=== PATIENT | male | born 2005 | race Caucasian/White ===

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

== ENCOUNTER 2024-05-14 21:00 | Emergency (ER) | payer OTHER ==
[~2024-05-14] VITALS: Ht 185.4 cm; Wt 83.9 kg
[~2024-05-14 21:00] MED LIST changes: +TRAZ50 PO
[2024-05-14] MEDS ORDERED: Lactated Ringer's 1,000 ML IV ONE (21:10)
[2024-05-14 21:28] VITALS: BP 136/84
[2024-05-14] MEDS ORDERED: Tetanus,Diphtheria Toxd Ped/Pf 0.5 ML VIAL IM ONE (21:35)
[2024-05-14 21:39] LABS: BASOPHILS ABSOLUTE AUTO 0.12 K/mm3 (0.00-0.23); BASOPHILS PERCENT AUTO 1 % (0-2); EOSINOPHILS PERCENT AUTO 2 % (0-6); Hematocrit 40.3 % (37.0-53.0); Hemoglobin 14.1 g/dL (13.5-17.5); IMMATURE GRAN ABSOLUTE AUTO 0.12 K/mm3 (0.00-0.10); IMMATURE GRAN PERCENT AUTO 1 % (0-1); LYMPHOCYTES ABSOLUTE AUTO 5.14 K/mm3 (0.84-5.20); LYMPHOCYTES PERCENT AUTO 42 % (21-46); MONOCYTES ABSOLUTE AUTO 1.11 K/mm3 (0.16-1.47); MONOCYTES PERCENT AUTO 9 % (4-13); Mean Corpuscular HGB 30.5 pg (26.0-34.0); Mean Corpuscular Volume 87 fL (80-100); Mean Platelet Volume 8.7 fL (9.1-12.4); NEUTROPHILS ABSOLUTE AUTO 5.53 K/mm3 (1.96-9.15); NEUTROPHILS PERCENT AUTO 45 % (41-73); Platelet Count 339 K/mm3 (150-400); RDW Coefficient Variation 11.9 % (11.7-14.2); RDW Standard Deviation 38.2 fL (35.1-46.3); Red Blood Cell Count 4.62 M/mm3 (4.30-5.90); White Blood Cell Count 12.32 K/mm3 (4.00-11.30)
[2024-05-14] MEDS ORDERED: Diphth,Pertuss(Acell),Tet Vac 0.5 ML VIAL IM ONE (21:40)
[2024-05-14 22:03] LABS: Albumin, Blood 4.3 g/dL (3.4-5.0); Albumin/Globulin Ratio 1.3 (0.8-1.8); Bilirubin, Total 0.4 mg/dL (0.1-1.0); Bun/Creatinine Ratio 10.5 (12.0-20.0); Calcium, Blood 8.3 mg/dL (8.5-10.1); Creatinine, Blood 0.86 mg/dL (0.60-1.20); Globulin, Blood 3.4 g/dL (2.2-4.0); Potassium, Blood 3.2 mmol/L (3.5-5.5); Total Protein, Blood 7.7 g/dL (6.4-8.2)
[2024-05-14] MEDS ORDERED: CEPH500 PO (22:49)
== END 2024-05-14 23:23 | disposition home or self-care (01) ==
LOC: ER 21:00
PROVIDERS: Physician Assistant
DX: S51.811A Laceration without foreign body of right forearm, initial encounter (principal); F10.129 Alcohol abuse with intoxication, unspecified; W26.9XXA Contact with unspecified sharp object(s), initial encounter
CPT/HCPCS: 73090; 80053; 83690; 85025; 90702; 90715; J7120

== ENCOUNTER → 2024-10-22 | Outpatient (CLI) | payer OTHER ==
[~2024-10-22] MED LIST changes: +CEPH500 PO
[2024-10-23 12:21] LABS: Adenovirus F 40/41 Not Detected (NOT DETECT); Astrovirus Not Detected (NOT DETECT); Campylobacter Sp Not Detected (NOT DETECT); Cryptosporidium Not Detected (NOT DETECT); Cyclospora Cayetanensis Not Detected (NOT DETECT); E. Coli O157 Not Detected (NOT DETECT); Entamoeba Histolytica Not Detected (NOT DETECT); Enteroaggregative E. coli-EAEC Not Detected (NOT DETECT); Enteropathogenic E. coli-EPEC Not Detected (NOT DETECT); Enterotoxigenic E. coli-ETEC Not Detected (NOT DETECT); Giardia Lamblia Not Detected (NOT DETECT); Norovirus GI/GII Not Detected (NOT DETECT); Plesiomonas Shigelloides Not Detected (NOT DETECT); Rotavirus A Not Detected (NOT DETECT); Salmonella Sp Not Detected (NOT DETECT); Sapovirus Not Detected (NOT DETECT); Shiga Toxin-prod E. coli-STEC Not Detected (NOT DETECT); Shigella/Enteroin E. coli-EIEC Not Detected (NOT DETECT); Vibrio Cholerae Not Detected (NOT DETECT); Vibrio Sp Not Detected (NOT DETECT); Yersinia Enterocolitica Not Detected (NOT DETECT)
== END ==
LOC: LAB SHORT 23:10 → LAB 23:10
PROVIDERS: Family Medicine
DX: R19.7 Diarrhea, unspecified (principal)
CPT/HCPCS: 87507

== ENCOUNTER 2025-02-06 12:42 | Observation (INO) | payer OTHER ==
[~2025-02-06] VITALS: Ht 182.9 cm; Wt 77.1 kg
[2025-02-06] MEDS ORDERED: NS 1,000 ML IV SCH ×2 (13:00→17:15)
[2025-02-06 13:20] LABS: BASOPHILS ABSOLUTE AUTO 0.07 K/mm3 (0.00-0.23); BASOPHILS PERCENT AUTO 1 % (0-2); EOSINOPHILS ABSOLUTE AUTO 0.18 K/mm3 (0.00-0.68); EOSINOPHILS PERCENT AUTO 2 % (0-6); Hematocrit 35.9 % (37.0-53.0); Hemoglobin 12.4 g/dL (13.5-17.5); IMMATURE GRAN ABSOLUTE AUTO 0.02 K/mm3 (0.00-0.10); IMMATURE GRAN PERCENT AUTO 0 % (0-1); LYMPHOCYTES ABSOLUTE AUTO 2.39 K/mm3 (0.84-5.20); LYMPHOCYTES PERCENT AUTO 28 % (21-46); MONOCYTES ABSOLUTE AUTO 0.74 K/mm3 (0.16-1.47); MONOCYTES PERCENT AUTO 9 % (4-13); Mean Corpuscular HGB Conc 34.5 g/dL (31.5-36.5); Mean Corpuscular Volume 87 fL (80-100); Mean Platelet Volume 8.7 fL (9.1-12.4); NEUTROPHILS ABSOLUTE AUTO 5.29 K/mm3 (1.96-9.15); NEUTROPHILS PERCENT AUTO 61 % (41-73); Platelet Count 312 K/mm3 (150-400); RDW Coefficient Variation 11.9 % (11.7-14.2); RDW Standard Deviation 38.3 fL (35.1-46.3); Red Blood Cell Count 4.14 M/mm3 (4.30-5.90); White Blood Cell Count 8.69 K/mm3 (4.00-11.30)
[2025-02-06 13:41] LABS: Albumin, Blood 4.3 g/dL (3.4-5.0); Albumin/Globulin Ratio 1.5 (0.8-1.8); Bilirubin, Total 0.7 mg/dL (0.1-1.0); Bun/Creatinine Ratio 11.7 (12.0-20.0); Creatinine, Blood 0.77 mg/dL (0.60-1.20); Globulin, Blood 2.8 g/dL (2.2-4.0); Potassium, Blood 3.5 mmol/L (3.5-5.5); Total Protein, Blood 7.1 g/dL (6.4-8.2)
[2025-02-06] MEDS ORDERED: Ondansetron HCl 2 MG / ML 2ML Vial IV ONE (14:45)
[2025-02-06] MEDS ORDERED: Morphine Sulfate 4 MG/1 ML Injection IV ONE (14:45)
[2025-02-06] MEDS ORDERED: Ondansetron HCl 2 MG / ML 2ML Vial IV PRN (14:50)
[2025-02-06] MEDS ORDERED: HYDROcodone 5-APAP 325 TAB PO PRN (15:20)
[2025-02-06 16:08] VITALS: BP 123/72
--- NOTE | 2025-02-06 16:14 | NUR ---
PT ARRIVED TO 227 FROM ED. PT RESTING ON L SIDE, TRANSFERRED PT FROM [facility] TO BED W/SLIDER SHEET. S.O. BEDSIDE. PT REFUSING TO OPEN EYES OR ANSWER QUESTIONS, MOVES WHEN TOUCHED, ADJUSTED ARM SO COULD GAIN ACCESS TO BP CUFF. BREATHING E/U ON RA. LCA. HRR. VSS. NO BRUISING/EDEMA NOTED TO BACK AT THIS TIME. CALL LIGHT IN REACH. BED ALARM ON FOR SAFETY.
--- NOTE | 2025-02-06 16:37 | NUR ---
SPOKE TO DR LANG REGARDING PT. REPORTED TO DR LANG PT NOT OPENING EYES, ANSWERING QUESTIONS. NO NEW ORDERS REGARDING MENTATION. CLARIFIED NO NEED FOR OXIMETRY OR TELE AT THIS TIME. PT MAY HAVE REGULAR DIET WHEN AWAKE. PT BRIEFLY TURNED ON BACK AND TOLD S.O. TO CLOSE CURTAINES DUE TO FEELING HOT BUT DECLINED TO ANSWER THIS RN'S QUESTIONS. NO BACK TO RESTING ON L SIDE. BED ALARM ON FOR SAFETY.
[2025-02-06] MEDS ORDERED: FentaNYL Citrate 50 MCG/ML 2 ML Injection IV PRN (16:40)
--- NOTE | 2025-02-06 17:21 | NUR ---
PT WOKE TO VOID AND THEN HAD EPISODE OF EMESIS/DRY HEAVES/NAUSEA. MEDICATED PER ORDERS W/ZOFRAN. STILL NOT ANSWERING QUESTIONS BUT LIFTED ARM OUT OF BLANKETS TO ALLOW ACCESS TO IV WHEN ASKED. RESTING ON R SIDE W/EYES CLOSED. S.O. AT BEDSIDE. BED ALARM ON FOR SAFETY. CALL LIGHT IN REACH.
[2025-02-06 17:27] LABS: Source, Urine Clean Catch
[2025-02-06 17:56] LABS: Appearance, Urine Hazy (Clear); Bilirubin, Urine Neg (Neg); Blood, Urine 5+ (Neg); Glucose Qualitative, Urine Neg (Neg); Ketones, Urine Neg (Neg); Leukocyte Esterase, Urine Neg (Neg); Nitrite, Urine Neg (Neg); Protein, Urine 1+ (Neg); Urobilinogen, Urine NORM (Normal)
[2025-02-06 18:12] LABS: Color, Urine Pale Yellow (P-Yellow)
[2025-02-06 18:13] LABS: Bacteria Not Seen /hpf; Red Blood Cells, Urine 50-100 /hpf (0-2); Squamous Epithelial Cells Rare /hpf (Few); White Blood Cells, Urine 0-2 /hpf (0-5)
[2025-02-06 19:23] VITALS: BP 125/83
--- NOTE | 2025-02-06 19:48 | NUR ---
ASSSESSMENT PATIENT IS AWAKE AND ALERT, ANSWERS ALL QUESTIONS. ABLE TO RECALL ACCIDENT AND DETAILS. HR IS SLIGHTLY LOW IN THE LOW 50S. SBP IS 120S. LUNG SOUNDS WNL. DENIES CHEST PAIN, SOB. ORIENTED TO CALL LIGHT AND SIGNIFICANT OTHER IN ROOM.
--- NOTE | 2025-02-07 05:06 | NUR ---
SHIFT SUMMARY PATIENT IS ALERT AND ORIENTED. DROWSY AT START OF SHIFT, ABLE TO ANSWER ALL QUESTIONS. PATIENT VOIDING, WALKING IN CHANG. TOLERATING PO INTAKE. MEDICATED FOR PAIN PER EMAR. RESTING AT THIS TIME. VSS. CALL LIGHT IN REACH .
[2025-02-07 05:28] VITALS: BP 121/57
[2025-02-07 06:35] LABS: BASOPHILS ABSOLUTE AUTO 0.07 K/mm3 (0.00-0.23); BASOPHILS PERCENT AUTO 1 % (0-2); EOSINOPHILS ABSOLUTE AUTO 0.15 K/mm3 (0.00-0.68); EOSINOPHILS PERCENT AUTO 1 % (0-6); Hematocrit 37.5 % (37.0-53.0); Hemoglobin 12.9 g/dL (13.5-17.5); IMMATURE GRAN ABSOLUTE AUTO 0.05 K/mm3 (0.00-0.10); IMMATURE GRAN PERCENT AUTO 0 % (0-1); LYMPHOCYTES PERCENT AUTO 22 % (21-46); MONOCYTES ABSOLUTE AUTO 1.23 K/mm3 (0.16-1.47); MONOCYTES PERCENT AUTO 10 % (4-13); Mean Corpuscular HGB 30.2 pg (26.0-34.0); Mean Corpuscular HGB Conc 34.4 g/dL (31.5-36.5); Mean Corpuscular Volume 88 fL (80-100); Mean Platelet Volume 9.5 fL (9.1-12.4); NEUTROPHILS ABSOLUTE AUTO 8.05 K/mm3 (1.96-9.15); NEUTROPHILS PERCENT AUTO 66 % (41-73); Platelet Count 322 K/mm3 (150-400); RDW Coefficient Variation 12.2 % (11.7-14.2); RDW Standard Deviation 39.2 fL (35.1-46.3); Red Blood Cell Count 4.27 M/mm3 (4.30-5.90); White Blood Cell Count 12.25 K/mm3 (4.00-11.30)
[2025-02-07 07:01] LABS: Bun/Creatinine Ratio 11.7 (12.0-20.0); Calcium, Blood 8.5 mg/dL (8.5-10.1); Creatinine, Blood 0.77 mg/dL (0.60-1.20); Potassium, Blood 3.5 mmol/L (3.5-5.5)
[2025-02-07 07:59] VITALS: BP 127/104
[2025-02-07 08:00] VITALS: BP 132/72
[2025-02-07 11:03] VITALS: BP 141/68
--- NOTE | 2025-02-07 14:41 | NUR ---
1050: RN TO ROOM TO ESCORT PATIENT FOR DISCHARGE. PATIENT WAS IN RESTROOM AND REPORTED PAIN IN ABDOMEN WITH INHALE; PATIENT REPORTED NO SHORTNESS OF BREATH. PATIENT VOIDED AND THEN BECAME DIAPHORETIC AND STATED HE FELT LIKE HE WAS GOING TO PASS OUT. VITAL SIGNS OBTAINED; ARCELIA MCCRACKEN WITH MESSAGE TO PROVIDER. NO NEW ORDERS OBTAINED. PATIENT RESTING IN BED WITH CALL LIGHT WITHIN REACH.
[2025-02-07 15:10] VITALS: BP 124/62
[2025-02-07 15:30] VITALS: BP 120/75
--- NOTE | 2025-02-07 15:59 | NUR ---
1555: PT WHEELED TO CAR WITH CAREGIVER. PT VERBALIZED UNDERSTANDING OF DC INSTRUCTIONS.
== END 2025-02-07 15:49 | disposition home or self-care (01) ==
LOC: ER 12:42 → SURS 12:43
PROVIDERS: Emergency Medicine; ADMIT Surgery
DX: S37.012A Minor contusion of left kidney, initial encounter (principal); V29.99XA Rider (driver) (passenger) of other motorcycle injured in unspecified traffic accident, initial encounter; Z79.899 Other long term (current) drug therapy
CPT/HCPCS: 36415; 70450; 71260; 72125; 74177; 80048; 80053; 80320; 81001; 85025; 96374-59; 96375; 96376; 99285-25; A9270; G0378; J2270; J2405; J7030; Q9967

== ENCOUNTER 2025-02-08 21:25 | Emergency (ER) | payer OTHER ==
[~2025-02-08] VITALS: Ht 180.3 cm; Wt 81.7 kg
[2025-02-08 21:41] VITALS: BP 136/84
== END 2025-02-08 23:29 | disposition home or self-care (01) ==
LOC: ER 21:25
DX: S37.032D Laceration of left kidney, unspecified degree, subsequent encounter (principal); S36.899D Unspecified injury of other intra-abdominal organs, subsequent encounter; Z02.79 Encounter for issue of other medical certificate; Z59.89 Other problems related to housing and economic circumstances; V29.99XD Rider (driver) (passenger) of other motorcycle injured in unspecified traffic accident, subsequent encounter
CPT/HCPCS: 99281

== ENCOUNTER 2025-06-07 23:27 | Emergency (ER) | payer OTHER ==
[~2025-06-07] VITALS: Ht 182.9 cm; Wt 75.3 kg
[2025-06-08 01:37] LABS: BASOPHILS ABSOLUTE AUTO 0.08 K/mm3 (0.00-0.23); BASOPHILS PERCENT AUTO 1 % (0-2); EOSINOPHILS ABSOLUTE AUTO 0.16 K/mm3 (0.00-0.68); EOSINOPHILS PERCENT AUTO 2 % (0-6); Hematocrit 38.1 % (37.0-53.0); Hemoglobin 13.2 g/dL (13.5-17.5); IMMATURE GRAN ABSOLUTE AUTO 0.03 K/mm3 (0.00-0.10); IMMATURE GRAN PERCENT AUTO 0 % (0-1); LYMPHOCYTES ABSOLUTE AUTO 2.64 K/mm3 (0.84-5.20); LYMPHOCYTES PERCENT AUTO 30 % (21-46); MONOCYTES ABSOLUTE AUTO 0.77 K/mm3 (0.16-1.47); MONOCYTES PERCENT AUTO 9 % (4-13); Mean Corpuscular HGB Conc 34.6 g/dL (31.5-36.5); Mean Corpuscular Volume 88 fL (80-100); NEUTROPHILS ABSOLUTE AUTO 5.08 K/mm3 (1.96-9.15); NEUTROPHILS PERCENT AUTO 58 % (41-73); NRBC ABSOLUTE 0.00 K/mm3 (0.00-0.02); NRBC Auto 0.0 /100 WBC (0.0-0.2); Platelet Count 299 K/mm3 (150-400); RDW Coefficient Variation 11.9 % (11.7-14.2); RDW Standard Deviation 38.4 fL (35.1-46.3)
[2025-06-08 01:51] LABS: Source, Urine Clean Catch
[2025-06-08 01:58] LABS: Bilirubin, Urine Neg (Neg); Glucose Qualitative, Urine Neg (Neg); Ketones, Urine Neg (Neg); Leukocyte Esterase, Urine Neg (Neg); Protein, Urine Neg (Neg); Specific Gravity, Urine 1.015 (1.003-1.022); Urobilinogen, Urine NORM (Normal)
[2025-06-08 02:00] LABS: Alanine Aminotransfer (ALT/SGP 21.0 U/L (12-78); Albumin, Blood 4.1 g/dL (3.4-5.0); Albumin/Globulin Ratio 1.5 (0.8-1.8); Anion Gap 8.0 mmol/L (3-11); Aspartate Aminotrans (AST/SGOT 16.0 U/L (12-37); Bilirubin, Total 0.9 mg/dL (0.1-1.0); Blood Urea Nitrogen 11.0 mg/dL (8-24); CO2, Blood 29.0 mmol/L (21-32); Calcium, Blood 8.7 mg/dL (8.5-10.1); Chloride, Blood 104.0 mmol/L (98-108); Creatinine, Blood 0.89 mg/dL (0.60-1.20); Globulin, Blood 2.8 g/dL (2.2-4.0); Glucose, Blood 89.0 mg/dL (70-99); Potassium, Blood 3.8 mmol/L (3.5-5.5); Sodium, Blood 137.0 mmol/L (136-145); Total Protein, Blood 6.9 g/dL (6.4-8.2)
[2025-06-08 02:08] LABS: Color, Urine Pale Yellow (P-Yellow)
[2025-06-08 02:09] LABS: Red Blood Cells, Urine 0-2 /hpf (0-2); White Blood Cells, Urine 0-2 /hpf (0-5)
[2025-06-08 03:08] VITALS: BP 142/70
== END 2025-06-08 03:08 | disposition home or self-care (01) ==
LOC: ER 23:27
PROVIDERS: Emergency Medicine
DX: N50.819 Testicular pain, unspecified (principal)
CPT/HCPCS: 76870; 80053; 81001; 85025; 99284-25

== ENCOUNTER 2025-07-18 11:11 | Day surgery (SDC) | payer OTHER ==
[~2025-07-18] VITALS: Ht 182.9 cm; Wt 77.3 kg
[2025-07-18] MEDS ORDERED: Midazolam HCL 1 MG/ML 5MLVIAL ONE (12:44)
[2025-07-18 14:07] VITALS: BP 123/84
== END 2025-07-18 14:06 | disposition home or self-care (01) ==
LOC: ORSCSDS 11:11
DX: R19.7 Diarrhea, unspecified (principal); R11.0 Nausea; K29.70 Gastritis, unspecified, without bleeding; D12.4 Benign neoplasm of descending colon; R63.4 Abnormal weight loss; R93.5 Abnormal findings on diagnostic imaging of other abdominal regions, including retroperitoneum; K64.8 Other hemorrhoids; F17.290 Nicotine dependence, other tobacco product, uncomplicated; R79.89 Other specified abnormal findings of blood chemistry
CPT/HCPCS: 88305; 88342; J2250; J2704; J7120

== ENCOUNTER 2025-09-10 03:54 | Emergency (ER) | payer OTHER ==
[~2025-09-10] VITALS: Ht 182.9 cm; Wt 81.7 kg
[2025-09-10 05:29] VITALS: BP 140/62
== END 2025-09-10 05:29 | disposition home or self-care (01) ==
LOC: ER 03:54
DX: M54.2 Cervicalgia (principal); R51.9 Headache, unspecified; F10.129 Alcohol abuse with intoxication, unspecified; Y04.8XXA Assault by other bodily force, initial encounter
CPT/HCPCS: 70450; 72125; 90471; 90715; 99284-25; A9270